=== PATIENT | female | born 1980 | race Caucasian/White ===

== ENCOUNTER → 2016-09-13 | Outpatient (CLI) | payer SELFPAY ==
[~2016-09-13] MED LIST: AMLO2.5T2 PO; ARIP2TAB3 PO; ASPI-999 PO; CATHETER FLUSH 10 ML SYR IV PRN; CETI10CA PO; CYCL5TAB PO; DICL25TA PO; GEMF600T3 PO; HYOS0.1283 SL; LISI-552 PO; LISI2.5T PO; METF500T4 PO; METO-351 PO; MONT4GRA PO; OMEG300C3 PO; OMEP20CA12 PO; OMEP40CA36 PO; SUCR1ORA5 PO; VENL75CA PO
--- OUTSIDE RECORDS SUMMARY | 2016-09-13 11:37 | XMS REPORT | Continuity of Care Document ---
Author Author [facility] Organization [facility] Address Unknown Phone Unavailable Care Team Providers Care Airline Captain Name Role Phone PCP Unavailable Source Comments Some departments are not documenting in the electronic medical record. If you do not see the information that you expected, contact Release of Information in the Health Information Management department at [phone] for further assistance in locating additional records.[facility] Active Allergies and Adverse Reactions Allergen Noted Date Severity Reactions Comments Codeine 01/22/2012 ANAPHYLAXIS Sulfa Dyne 01/22/2012 RASH Current Medications Prescription Sig. Disp. Refills Start End Date Status Date lisinopril (PRINIVIL; Take 10 mg by mouth Active ZESTRIL) 10 mg tablet daily. omeprazole DR(+) Take 20 mg by mouth Active (PRILOSEC) 20 mg capsule daily. meloxicam(+) (MOBIC) 7.5 Take 7.5 mg by mouth Active mg tablet daily. CYCLOBENZAPRINE HCL Take by mouth. Active (FLEXERIL PO) SUMAtriptan (IMITREX) 25 Take 25 mg by mouth every Active mg tablet 2 hours as needed. citalopram (CELEXA) 40 mg Take 40 mg by mouth Active tablet daily. HYDROcodone/acetaminophen Take 1-2 Tabs by mouth Active (VICODIN) 5/500 mg tablet every 4 hours as needed. loratadine (CLARITIN) 10 Take 10 mg by mouth Active mg tablet daily. Active Problems Problem Noted Date Hypertrophy of breast 01/22/2012 Social History Tobacco Use Types Packs/Day Years Used Date Never Smoker Smokeless Tobacco: Never Used Tobacco Cessation: Counseling Given: Yes Comments: Alcohol Use Drinks/Week oz/Week Comments Yes rarely Last Filed Vital Signs Vital Sign Reading Time Taken Blood Pressure 132/90 01/22/2012 1:57 PM CDT Pulse 101 01/22/2012 1:57 PM CDT Temperature 37.2 C (99 F) 01/22/2012 1:57 PM CDT Respiratory Rate 16 01/22/2012 1:57 PM CDT Height 1.676 m (5' 6") 01/22/2012 1:57 PM CDT Weight 90.719 kg (200 lb) 01/22/2012 1:57 PM CDT Body Mass Index 32.3 01/22/2012 1:57 PM CDT Oxygen Saturation - - Plan of Care Health Maintenance Due Date Last Done Comments Physical (Comprehensive) 1986 Exam Pertussis Vaccine 1990 Tetanus Vaccine 1996 Cervical Cancer Screening 2000 Influenza Vaccine 05/09/2016 Results from Last 3 Months Not on file
--- NOTE | 2016-09-13 18:44 | Diagnostic Imaging Report ---
INDICATION: Epigastric pain. TECHNIQUE: Patient received 5.2 mCi Tc 99m Choletec. Following confirmation of activity within the gallbladder, the biliary ducts, and the proximal bowel, the patient ingested 8 ounces of fatty meal comprised of Ensure Plus and gallbladder ejection fraction subsequently quantified. FINDINGS: There is prompt homogeneous distribution of the radiopharmacy throughout the liver parenchyma. Activity is quickly identified within the gallbladder as well as central intrahepatic biliary ducts within the 15-minute interval. Activity is confirmed within proximal bowel at the 30-minute interval. With fatty meal stimulation, gallbladder ejection fraction was 57%, normal. IMPRESSION: Normal nuclear medicine hepatobiliary scan. Normal gallbladder ejection fraction. Patency of the cystic duct and extrahepatic ducts confirmed. Dictated by: Dictated on workstation # [id number]
== END ==
LOC: CARD 11:34
PROVIDERS: ATTEND Emergency Medicine
DX: R10.13 Epigastric pain (principal)
CPT/HCPCS: 78227

== ENCOUNTER → 2018-07-14 | Outpatient (CLI) | payer OTHER ==
[~2018-07-14] MED LIST changes: -CATHETER FLUSH 10 ML SYR IV PRN; -GEMF600T3 PO; +GEMF600T4 PO; +METF-397 PO; -METF500T4 PO
--- NOTE | 2018-07-14 11:26 | Diagnostic Imaging Report ---
PROCEDURE: MRI left joint lower extremity without contrast. TECHNIQUE: Multiplanar, multisequence non contrast-enhanced MRI of the left lower extremity was accomplished. Indication: Left ankle pain, greatest anteriorly. Comparisons: None available. Findings: TENDONS: Achilles is normal. The peroneal tendons are intact and without tenosynovitis. The posterior tibialis, flexor digitorum longus and flexor hallucis longus are normal. The anterior tibialis and extensor hallucis longus tendons are normal. There is interstitial type edema within the extensor hallucis longus and peroneus tertius muscle bellies just above the tibiotalar joint. The visualized portions of the tendons are otherwise normal. LIGAMENTS: Anterior and posterior distal tibiofibular ligaments are intact. The anterior talofibular ligament is intact with mild thickening likely due to old injury which has healed via scar formation. Calcaneofibular ligament is also intact with mild thickening. Posterior tibiofibular ligament is normal. Medial deltoid ligamentous complex is intact. BONES AND CARTILAGE: No osteochondral lesion of the talar dome. No fracture or stress fracture. The articular cartilage of the tibiotalar and posterior subtalar joints are normal. SOFT TISSUES: No evidence of plantar fasciitis. No abnormal soft tissue scar/fibrosis within the tarsal canal/sinus tarsi or tarsal tunnel. No ankle joint effusion. A small T2 hyperintense cystic ganglion arises from the lateral aspect of the talonavicular joint and extends superiorly measuring approximately 11 x 4 mm. This is located just deep to the extensor digitorum longus myotendinous junction. IMPRESSION: 1. Interstitial type edema within the peroneus tertius and extensor digitorum longus muscle bellies suggests low-grade muscle sprain. No associated tendon tear. 2. Small ganglion arising from the lateral and dorsal aspect of the talonavicular joint extends superficially and measures 11 x 4 mm. The superficial aspect of the ganglion is located along the deep surface of the extensor digitorum longus. 3. No acute ligamentous abnormality. Probable old injuries of the ATFL and CFL which have healed via scar formation. Dictated by: Dictated on workstation # [id number]
== END ==
LOC: RAD 08:38
PROVIDERS: ATTEND Nurse Practitioner Community Health
DX: M25.472 Effusion, left ankle (principal); M67.472 Ganglion, left ankle and foot
CPT/HCPCS: 73721

== ENCOUNTER → 2019-06-22 | Outpatient (CLI) | payer OTHER ==
[~2019-06-22] MED LIST changes: -GEMF600T4 PO; +GEMF600T8 PO; -OMEP20CA12 PO; +OMEP20CA13 PO
--- NOTE | 2019-06-22 15:34 | Diagnostic Imaging Report ---
EXAMINATION: Magnetic resonance imaging of the left ankle without contrast. DATE: June 22, 2019. COMPARISON: MRI left ankle of July 14, 2018. HISTORY: 38-year-old female, history of prior left ankle injury. Evaluation for ankle impingement syndrome. TECHNIQUE: Magnetic Resonance Imaging sequences were performed of the ankle without contrast. FINDINGS: TENDONS AND LIGAMENTS: The Achilles tendon is unremarkable. The posterior flexor tendons (tibialis posterior, flexor digitorum longus, flexor hallucis longus) are intact. The peroneal tendons (peroneus longus and peroneus brevis) are intact. The anterior extensor tendons (tibialis anterior, extensor hallucis longus, and extensor digitorum longus tendons) are intact. The anterior and posterior syndesmotic ligaments are intact. There is abnormal thickening and increased signal of the anterior talofibular ligament with a similar appearance of the calcaneofibular ligament. The posterior talofibular ligament is intact. There is ill-defined edema-like signal adjacent to the low lateral ankle ligament complex. There is also a well-corticated ossification in this distribution, compatible with sequela of remote prior injury. There is low-level degenerative related change in the lateral talus in this distribution, best illustrated on coronal PD fat saturation sequence image 14. There is no current tear identified of the anterior talofibular ligament, calcaneofibular ligament, or posterior talofibular ligament. The deep deltoid ligament is intact. There is a ganglion cyst along the transverse ligament measuring 4.7 x 6.8 x 7 mm in size. JOINTS: There is a small to moderate tibiotalar joint effusion. There is no pronounced tibiotalar joint space loss or osteophyte formation. There is mild posterior subtalar arthritis. There is no subtalar joint effusion. BONE: The talar dome is intact. There is no acute fracture. There is low-level degenerative related marrow change adjacent to the posterior subtalar joint. The additional bone marrow signal is unremarkable. BURSAE AND SOFT TISSUES: The bursae and soft tissues surrounding the ankle are unremarkable. IMPRESSION: 1. Sequela of prior anterior talofibular and calcaneofibular ligament injuries with abnormal thickening and increased signal of both ligaments. There is a well corticated ossification in the distribution of the low lateral ankle ligament complex, compatible with sequela of prior injury. There is ill-defined soft tissue edema in the region which may correlate with the provided history of impingement syndrome. Current tear of the low lateral ankle ligaments. 2. Intact deltoid ligament complex and syndesmotic ligaments. 3. Intact tendons. 4. No acute fracture. Intact talar dome. 5. Small to moderate tibiotalar joint effusion. Mild posterior subtalar arthritis. Dictated by: Dictated on workstation # [id number]
== END ==
LOC: RAD 13:36
PROVIDERS: ATTEND Orthopaedic Surgery
DX: S93.492A Sprain of other ligament of left ankle, initial encounter (principal); M25.872 Other specified joint disorders, left ankle and foot; M19.072 Primary osteoarthritis, left ankle and foot; M61.572 Other ossification of muscle, left ankle and foot
CPT/HCPCS: 73721

== ENCOUNTER 2019-11-22 07:00 | Emergency (ER) | payer MEDICAID, OTHER ==
[~2019-11-22] VITALS: Ht 167.7 cm; Wt 100.0 kg
[~2019-11-22 07:00] MED LIST changes: -OMEP20CA13 PO; +OMEP20CA18 PO; +OMEP40CA27 PO; -OMEP40CA36 PO
--- NOTE | 2019-11-22 07:14 | ED GI ---
General Stated Complaint: BLOOD IN STOOL Source of Information: Patient Exam Limitations: No Limitations History of Present Illness Date Seen by Provider: Nov 22, 2019 Time Seen by Provider: 07:04 Initial Comments Patient presents ER by private conveyance from home with chief complaint that since yesterday she's had some mild nausea with no vomiting. She's also having some blood from the rectum. She says she was trying to have a bowel movement and straining and was only able to pass a small amount of soft stool. She said since then she's had some blood pass from rectum. She has no history of EGD or colonoscopy. She does have a history of hemorrhoids with some bright red blood on wiping in the past. She's never had a fissure. She's not having significant pain in her rectum. She's had no fever or chills. She's had some general discomfort in her lower abdomen bilaterally. She's had no abdominal surgeries. No trauma. She takes an aspirin daily but does not take any blood thinners. She has not taken anything for pain or nausea. Allergies and Home Medications Allergies Coded Allergies: Sulfa (Sulfonamide Antibiotics) (Verified Allergy, Unknown, 05/12/15) codeine (Verified Allergy, Unknown, 05/12/15) Home Medications Amlodipine Besylate 2.5 Mg Tablet, 5 MG PO DAILY, (Reported) Hyoscyamine Sulfate 0.125 Mg Tab.subl, 1-2 TAB SL Q4H Prescribed by: FIORELLA GARCIA on 08/25/162337 Lisinopril 20 Mg Tablet, 1 TAB PO DAILY, (Reported) Metformin HCl 500 Mg Tablet, 1 TAB PO BID, (Reported) Metoprolol Succinate 25 Mg Tab.er.24h, 25 MG PO DAILY Prescribed by: LIAT BEACH on 05/12/152133 Montelukast Sodium 4 Mg Gran.pack, 4 MG PO HS, (Reported) Omeprazole 20 Mg Capsule.dr, 1 CAP PO DAILY, (Reported) Omeprazole 40 Mg Capsule., 40 MG PO DAILY Prescribed by: FIORELLA GARCIA on 08/25/162337 Sucralfate 1 Gm/10 Ml Oral.susp, 1 GM PO QID AC AND HS Prescribed by: FIORELLA GARCIA on 08/25/162337 Patient Home Medication List Home Medication List Reviewed: Yes Review of Systems Review of Systems Constitutional: No chills, No diaphoresis EENTM: No Blurred Vision, No Double Vision Respiratory: Denies Cough, Denies Shortness of Air Cardiovascular: Denies Chest Pain, Denies Edema Gastrointestinal: See HPI, Abdominal Pain, Constipated; Denies Diarrhea; Nausea ; Denies Vomiting Genitourinary: Denies Burning, Denies Discharge Musculoskeletal: No back pain, No joint pain Skin: No pruritus, No rash Psychiatric/Neurological: Denies Headache, Denies Numbness All Other Systems Reviewed Negative Unless Noted: Yes Past Bwpupyk-Jqmaif-Udfrah Hx Patient Social History Alcohol Use: Denies Use Recreational Drug Use: No Smoking Status: Never a Smoker Recent Foreign Travel: No Contact w/Someone Who Travel: No Recent Hopitalizations: No Immunizations Up To Date Tetanus Booster (TDap): Unknown Seasonal Allergies Seasonal Allergies: No Past Medical History Orthopedic, Tonsillectomy Asthma Currently Using CPAP: No Currently Using BIPAP: No High Cholesterol, Hypertension Headaches /Migraines Reproductive Disorders: Yes (PCOS) Female Reproductive Disorders: Polycystic Ovarian Dis Gastroesophageal Reflux Fibromyalgia Diabetes, Non-Insulin dep Anxiety, Depression Adverse Reaction/Blood Tranf: No Physical Exam Vital Signs Vital Signs - First Documented 11/22/19 07:04 Temp 37.0 Pulse 100 Resp 18 B/P (MAP) 142/99 (113) O2 Delivery Room Air Capillary Refill : Height/Weight/BMI Height: 5'6" Weight: 203lbs. oz. 92.577671hr; BMI Method:Stated General Appearance: WD/WN, no apparent distress HEENT: PERRL/EOMI, pharynx normal Neck: full range of motion, normal inspection Respiratory: no respiratory distress, no accessory muscle use Cardiovascular: normal peripheral pulses, regular rate, rhythm, tachycardia (110) Peripheral Pulses: 2+ Radial Pulses (R), 2+ Radial Pulses (L) Gastrointestinal: normal bowel sounds, non tender, soft, no organomegaly, other (negative for mesenteric signs, psoas sign, Rovsing sign, McBurney's point tenderness.) Rectal: normal exam, normal rectal tone, heme positive stool, other (rectal vault free of mass or stool. No significant hemorrhoid, fissure or lesion.) Extremities: normal inspection, normal capillary refill Neurologic/Psychiatric: alert, oriented x 3 Skin: normal color, warm/dry Progress/Results/Core Measures Results/Orders Lab Results Laboratory Tests Test 11/22/19 07:20 11/22/19 07:33 Range/Units Urine Color YELLOW Urine Clarity CLEAR Urine pH 7.0 5-9 Urine Specific [place] 1.020 1.016-1.022 Urine Protein TRACE H NEGATIVE Urine Glucose (UA) NEGATIVE NEGATIVE Urine Ketones NEGATIVE NEGATIVE Urine Nitrite NEGATIVE NEGATIVE Urine Bilirubin NEGATIVE NEGATIVE Urine Urobilinogen 1.0 < = 1.0 MG/DL Urine Leukocyte Esterase 1+ H NEGATIVE Urine RBC (Auto) NEGATIVE NEGATIVE Urine RBC RARE /HPF Urine WBC 10-25 H /HPF Urine Squamous Epithelial Cells 2-5 /HPF Urine Crystals NONE /LPF Urine Bacteria FEW H /HPF Urine Casts PRESENT /LPF Urine Hyaline Casts 0-2 H /LPF Urine Mucus SMALL H /LPF Urine Culture Indicated YES White Blood Count 17.1 H 4.3-11.0 10^3/uL Red Blood Count 5.14 4.35-5.85 10^6/uL Hemoglobin 14.1 11.5-16.0 G/DL Hematocrit 44 35-52 % Mean Corpuscular Volume 86 80-99 FL Mean Corpuscular Hemoglobin 27 25-34 PG Mean Corpuscular Hemoglobin Concent 32 32-36 G/DL Red Cell Distribution Width 14.8 H 10.0-14.5 % Platelet Count 527 H 130-400 10^3/uL Mean Platelet Volume 9.3 7.4-10.4 FL Neutrophils (%) (Auto) 80 H 42-75 % Lymphocytes (%) (Auto) 13 12-44 % Monocytes (%) (Auto) 6 0-12 % Eosinophils (%) (Auto) 0 0-10 % Basophils (%) (Auto) 0 0-10 % Neutrophils # (Auto) 13.7 H 1.8-7.8 X 10^3 Lymphocytes # (Auto) 2.2 1.0-4.0 X 10^3 Monocytes # (Auto) 1.1 H 0.0-1.0 X 10^3 Eosinophils # (Auto) 0.0 0.0-0.3 10^3/uL Basophils # (Auto) 0.1 0.0-0.1 10^3/uL Sodium Level 134 L 135-145 MMOL/L Potassium Level 4.4 3.6-5.0 MMOL/L Chloride Level 105 98-107 MMOL/L Carbon Dioxide Level 18 L 21-32 MMOL/L Anion Gap 11 5-14 MMOL/L Blood Urea Nitrogen 12 7-18 MG/DL Creatinine 0.98 0.60-1.30 MG/DL Estimat Glomerular Filtration Rate > 60 BUN/Creatinine Ratio 12 Glucose Level 182 H 70-105 MG/DL Calcium Level 10.1 8.5-10.1 MG/DL My Orders Orders - SHERRELL NASH Occult Blood Stool (11/22/19 07:12) Cbc With Automated Diff (11/22/19 07:12) Basic Metabolic Panel (11/22/19 07:12) Ua Culture If Indicated (11/22/19 07:12) Urine Bedside (11/22/19 07:12) Ondansetron Oral Dissolve Tab (Zofran (11/22/19 07:15) Pantoprazole Tablet (Protonix Tablet) (11/22/19 07:15) Manual Differential (11/22/19 07:33) Urine Culture (11/22/19 07:20) Medications Given in ED Current Medications Medications Dose Ordered Sig/Yumi Route Start Time Stop Time Status Last Admin Dose Admin Ondansetron HCl 4 mg ONCE ONCE PO 11/22/19 07:15 11/22/19 07:16 DC 11/22/19 07:25 4 MG Pantoprazole Sodium 20 mg ONCE ONCE PO 11/22/19 07:15 11/22/19 07:16 DC 11/22/19 07:24 20 MG Vital Signs/I&O 11/22/19 07:04 Temp 37.0 Pulse 100 Resp 18 B/P (MAP) 142/99 (113) O2 Delivery Room Air Progress Progress Note : Time: 07:18 Progress Note Pelvic constipation possibly hemorrhoids. Plan to do a rectal exam. We'll give her some Protonix and Zofran for her symptoms. If her hemogram does not demonstrate significant anemia then we can get her set up for endoscopy outpa tient. Fecal occult blood test positive. Departure Impression Primary Impression: Bright red blood per rectum Additional Impression: UTI (urinary tract infection) Qualified Codes: N30.00 - Acute cystitis without hematuria Disposition: 01 HOME, SELF-CARE Condition: Stable Departure-Patient Inst. Decision time for Depature: 08:15 Referrals: CLAUDE OCASIO DO (PCP) Primary Care Physician ANN MARIE BENSON (Family) Primary Care Physician BLANCA GARCES MD Patient Instructions: Urinary Tract Infection, Adult (DC), Bloody Stools, Adult (DC) Add. Discharge Instructions: I suspect that you may have the start of a bladder infection and so we would cover you with some Macrobid for the next 7 days. Drink plenty of fluids. For the blood in your stool I would cover you you with an acid in process inspector such as omeprazole or pantoprazole 20m mg twice a day. These are available [id number] or we will send you with a prescription. Endoscopy is the next step in diagnosing what's causing the bleeding. I would recommend you go see Dr. Garces, general surgery by giving his clinic a phone call to schedule an appointment in the next 1-2 weeks. Ondansetron one tablet every 6 hours as needed for nausea or vomiting. Discontinue the use of aspirin, ibuprofen, naproxen/Aleve or other NSAIDs until cleared by Dr. Garces or your primary care doctor. Scripts Ondansetron (Ondansetron Odt) 4 Mg Tab.rapdis 4 MG PO Q6H PRN for NAUSEA/VOMITING, #8 TAB 0 Refills Prov: SHERRELL NASH 11/22/19 Nitrofurantoin Monohyd/M-Cryst (Macrobid 100 mg Capsule) 100 Mg Capsule 1 TAB PO BID for 7 Days, #14 CAP 0 Refills Prov: SHERRELL NASH 11/22/19 Omeprazole (Omeprazole) 20 Mg Capsule.dr 20 MG PO BID for 30 Days, #60 CAP 0 Refills Prov: SHERRELL NASH 11/22/19 Work/School Note: Work Release Form Date Seen in the Emergency Department: Nov 22, 2019 Return to Work: Nov 23, 2019 Restrictions: No Restrictions Copy Copies To 1: BLANCA GARCES MD, TITUS J Nov 22, 2019 07:14
[2019-11-22] MEDS ORDERED: ONDANSETRON 4 MG (ZOFRAN) ORAL DISSOLVE TAB PO ONE (07:15)
[2019-11-22] MEDS ORDERED: PANTOPRAZOLE 20 MG TABLET (PROTONIX) PO ONE (07:15)
[2019-11-22 07:35] LABS: BILIRUBIN,URINE NEGATIVE (NEGATIVE); CLARITY,URINE CLEAR; COLOR,URINE YELLOW; GLUCOSE, URINE (UA) NEGATIVE (NEGATIVE); KETONES,URINE NEGATIVE (NEGATIVE); LEUKOCYTE ESTERASE ,URINE 1+ (NEGATIVE); NITRITE,URINE NEGATIVE (NEGATIVE); PROTEIN,URINE TRACE (NEGATIVE)
[2019-11-22 07:41] LABS: BASOPHILS # (AUTO) 0.1 10^3/uL (0.0-0.1); BASOPHILS % (AUTO) 0 % (0-10); EOSINOPHILS % (AUTO) 0 % (0-10); HEMATOCRIT 44 % (35-52); HEMOGLOBIN 14.1 G/DL (11.5-16.0); LYMPHOCYTES # (AUTO) 2.2 X 10^3 (1.0-4.0); LYMPHOCYTES % (AUTO) 13 % (12-44); MEAN CORPUSCULAR HEMOGLOBIN 27 PG (25-34); MEAN CORPUSCULAR HGB CONC 32 G/DL (32-36); MEAN CORPUSCULAR VOLUME 86 FL (80-99); MEAN PLATELET VOLUME 9.3 FL (7.4-10.4); MONOCYTES # (AUTO) 1.1 X 10^3 (0.0-1.0); MONOCYTES % (AUTO) 6 % (0-12); NEUTROPHILS # (AUTO) 13.7 X 10^3 (1.8-7.8); NEUTROPHILS % (AUTO) 80 % (42-75); PLATELET COUNT 527 10^3/uL (130-400); RED CELL DISTRIBUTION WIDTH 14.8 % (10.0-14.5); WHITE BLOOD COUNT 17.1 10^3/uL (4.3-11.0)
[2019-11-22 07:54] LABS: BACTERIA,URINE FEW /HPF; RBC,URINE RARE /HPF
[2019-11-22 07:55] LABS: HYALINE CASTS, URINE 0-2 /LPF
[2019-11-22 08:04] LABS: BUN/CREATININE RATIO 12; CALCIUM 10.1 MG/DL (8.5-10.1); CARBON DIOXIDE 18 MMOL/L (21-32); CHLORIDE 105 MMOL/L (98-107); CREATININE SERUM 0.98 MG/DL (0.60-1.30); GFR ESTIMATED > 60; GLUCOSE 182 MG/DL (70-105); POTASSIUM 4.4 MMOL/L (3.6-5.0); SODIUM 134 MMOL/L (135-145)
[2019-11-22] MEDS ORDERED: OMEP20CA18 PO (08:31)
[2019-11-22] MEDS ORDERED: NITR-65 PO (08:31)
[2019-11-22] MEDS ORDERED: ONDA4TAB11 PO (08:31)
[2019-11-22 08:42] VITALS: BP 136/89
[2019-11-22 08:45] LABS: LYMPHOCYTES % (MANUAL) 9 %; MONOCYTES % (MANUAL) 7 %; NEUTROPHILS % (MANUAL) 84 %; RBC MORPH NORMAL
== END 2019-11-22 08:42 | disposition home or self-care (01) ==
LOC: EDUNIT# 07:00 → ER 07:02
DX: K62.5 Hemorrhage of anus and rectum (principal); N39.0 Urinary tract infection, site not specified; I10 Essential (primary) hypertension; E11.9 Type 2 diabetes mellitus without complications; K21.9 Gastro-esophageal reflux disease without esophagitis; Z88.2 Allergy status to sulfonamides; Z88.5 Allergy status to narcotic agent; Z79.84 Long term (current) use of oral hypoglycemic drugs
CPT/HCPCS: 36415; 80048; 81000; 82274; 84703; 85007; 85027; 87077; 87088; 87186

== ENCOUNTER → 2020-03-24 | Outpatient (CLI) | payer MEDICAID, OTHER ==
[~2020-03-24] MED LIST changes: +NITR-65 PO; +ONDA4TAB11 PO
--- NOTE | 2020-03-24 14:20 | Diagnostic Imaging Report ---
PROCEDURE: CT left lower extremity without contrast. TECHNIQUE: Multiple contiguous axial images were obtained through the left lower extremity without the use of intravenous contrast. Sagittal and coronal reformations were then performed. Auto Exposure Controls were utilized during the CT exam to meet ALARA standards for radiation dose reduction. INDICATION: Ankle fracture four years ago with four surgeries. Persistent ankle pain. COMPARISON: MRI from 06/22/2019. FINDINGS: There is an arthrodesis of the posterior subtalar joint with two cannulated partially-threaded screws placed through the calcaneus and subtalar joint. Approximately one-third of the posterior subtalar joint appears to be bridged. There is no loosening of the hardware. No acute fracture is seen in the left ankle. The ankle mortise appears symmetric and the talar dome is intact. There is a type I accessory navicular. A small os peroneum is noted. The tendons and ligaments are better evaluated by MRI. No focal muscular atrophy is seen. No fluid collections are seen. IMPRESSION: 1. Arthrodesis of the posterior subtalar joint with no evidence of hardware loosening seen. No acute fracture is seen in the left ankle. Dictated by: Dictated on workstation # [id number]
== END ==
LOC: RAD 11:53
PROVIDERS: ATTEND Orthopaedic Surgery
DX: Z98.1 Arthrodesis status (principal); Z98.890 Other specified postprocedural states
CPT/HCPCS: 73700

== ENCOUNTER 2020-12-29 08:53 | Outpatient (RCR) | payer OTHER ==
[~2020-12-29 08:53] MED LIST changes: -GEMF600T8 PO; +GEMF600T88 PO; -LISI-552 PO; +LISI20TA26 PO
== END 2021-01-17 | disposition home or self-care (01) ==
PROVIDERS: ATTEND Physician Assistant
DX: M96.0 Pseudarthrosis after fusion or arthrodesis (principal); I10 Essential (primary) hypertension

== ENCOUNTER 2021-02-09 22:13 | Emergency (ER) | payer SELFPAY ==
[~2021-02-09] VITALS: Ht 167.7 cm; Wt 102.9 kg
[2021-02-09 22:25] LABS: CLARITY,URINE CLEAR; COLOR,URINE YELLOW; GLUCOSE, URINE (UA) NEGATIVE (NEGATIVE); KETONES,URINE NEGATIVE (NEGATIVE); LEUKOCYTE ESTERASE ,URINE NEGATIVE (NEGATIVE); NITRITE,URINE NEGATIVE (NEGATIVE); PH,URINE 5.5 (5-9); PROTEIN,URINE TRACE (NEGATIVE)
[2021-02-09 22:30] LABS: BILIRUBIN,URINE NEGATIVE (NEGATIVE)
--- NOTE | 2021-02-09 22:39 | ED GU-Female ---
General Chief Complaint: - Urinary Stated Complaint: PAINFUL URINATION/URGENCY Source: patient Exam Limitations: no limitations History of Present Illness Date Seen by Provider: Feb 09, 2021 Time Seen by Provider: 22:17 Initial Comments Patient presents ER by private conveyance from home with chief complaint of dysuria for the past 3 hours. Has a history of about 3 or 4 urinary tract infections a year. She used to have lots more and went to urology and had scopes as well as urethral sphincter stretching a few years ago. She is not having any discharge diarrhea constipation nausea vomiting fever chills or significant abdominal pain. She states she has not had any abdominal surgeries. She does have a history of fibromyalgia and rates her dysuria when she urinates about an 8 out of 10. She has used Tylenol and ibuprofen earlier in the day for headache but not anything for her dysuria such as AZO. She states she also has a history of urethritis which often turns into UTIs. She has diabetes and has had a difficult time recently getting her sugars under good control. Primary care by Dr. Noguera. Allergies and Home Medications Allergies Coded Allergies: Sulfa (Sulfonamide Antibiotics) (Verified Allergy, Unknown, 02/09/21) codeine (Verified Allergy, Unknown, 02/09/21) diphenhydramine (Verified Allergy, Unknown, 02/09/21) Home Medications Amlodipine Besylate 2.5 Mg Tablet, 5 MG PO DAILY, (Reported) Hyoscyamine Sulfate 0.125 Mg Tab.subl, 1-2 TAB SL Q4H Prescribed by: FIORELLA GARCIA on 08/25/162337 Lisinopril 20 Mg Tablet, 1 TAB PO DAILY, (Reported) Metformin HCl 500 Mg Tablet, 1 TAB PO BID, (Reported) Metoprolol Succinate 25 Mg Tab.er.24h, 25 MG PO DAILY Prescribed by: LIAT BEACH on 05/12/152133 Montelukast Sodium 4 Mg Gran.pack, 4 MG PO HS, (Reported) Nitrofurantoin Monohyd/M-Cryst 100 Mg Capsule, 1 TAB PO BID Prescribed by: SHERRELL NASH on 11/22/19 0831 Omeprazole 20 Mg Capsule.dr, 1 CAP PO DAILY, (Reported) Omeprazole 40 Mg Capsule., 40 MG PO DAILY Prescribed by: FIORELLA GARCIA on 08/25/162337 Omeprazole 20 Mg Capsule.dr, 20 MG PO BID Prescribed by: SHERRELL NASH on 11/22/19 0831 Ondansetron 4 Mg Tab.rapdis, 4 MG PO Q6H PRN for NAUSEA/VOMITING Prescribed by: SHERRELL NASH on 11/22/19 0831 Sucralfate 1 Gm/10 Ml Oral.susp, 1 GM PO QID AC AND HS Prescribed by: FIORELLA GARCIA on 08/25/16 0313 Patient Home Medication List Home Medication List Reviewed: Yes Review of Systems Review of Systems Constitutional: No chills, No diaphoresis EENTM: No ear discharge, No ear pain Respiratory: No cough, No phlegm Cardiovascular: No chest pain, No edema Gastrointestinal: No abdominal pain, No nausea Genitourinary: denies discharge; dysuria; denies frequency Past Vkjitno-Snhzpq-Uxwhfc Hx Patient Social History Alcohol Use: Denies Use Recent Hopitalizations: No Immunizations Up To Date Tetanus Booster (TDap): Unknown Seasonal Allergies Seasonal Allergies: No Past Medical History Surgeries: Yes (DENTAL--WISDOM TEETH REMOVED; LEFT ANKLE) Orthopedic, Tonsillectomy Respiratory: Yes Asthma Currently Using CPAP: No Currently Using BIPAP: No Cardiac: Yes High Cholesterol, Hypertension Neurological: Yes Headaches /Migraines Reproductive Disorders: Yes (PCOS) Female Reproductive Disorders: Polycystic Ovarian Dis Genitourinary: Yes (PATIENT OF DR SUAREZ) UTI-Chronic Gastrointestinal: Yes Gastroesophageal Reflux Musculoskeletal: Yes Fibromyalgia Endocrine: Yes (INSULIN RESISTANCE) Diabetes, Non-Insulin dep HEENT: No Cancer: No Psychosocial: Yes Anxiety, Depression Integumentary: No Blood Disorders: No Adverse Reaction/Blood Tranf: No Physical Exam Vital Signs Vital Signs - First Documented 02/09/21 22:19 Temp 35.9 Pulse 110 Resp 20 B/P (MAP) 129/82 (98) Pulse Ox 96 Capillary Refill : Height, Weight, BMI Height: 5'6" Weight: 203lbs. oz. 92.046924xz; 35.00 BMI Method:Stated General Appearance: WD/WN, no apparent distress HEENT: PERRL/EOMI, pharynx normal Neck: full range of motion, normal inspection Cardiovascular: normal peripheral pulses, regular rate, rhythm Respiratory: no respiratory distress, no accessory muscle use Neurologic/Psychiatric: alert, normal mood/affect Progress/Results/Core Measures Suspected Sepsis SIRS Temperature: Pulse: Respiratory Rate: Blood Pressure / Mean: Results/Orders Lab Results Laboratory Tests Test 02/09/21 22:19 Range/Units Urine Color YELLOW Urine Clarity CLEAR Urine pH 5.5 5-9 Urine Specific Amma >=1.030 1.016-1.022 Urine Protein TRACE H NEGATIVE Urine Glucose (UA) NEGATIVE NEGATIVE Urine Ketones NEGATIVE NEGATIVE Urine Nitrite NEGATIVE NEGATIVE Urine Bilirubin NEGATIVE NEGATIVE Urine Urobilinogen 0.2 < = 1.0 MG/DL Urine Leukocyte Esterase NEGATIVE NEGATIVE Urine RBC (Auto) NEGATIVE NEGATIVE Urine RBC RARE /HPF Urine WBC 2-5 /HPF Urine Squamous Epithelial Cells 2-5 /HPF Urine Crystals /LPF Urine Bacteria FEW H /HPF Urine Casts PRESENT /LPF Urine Hyaline Casts 0-2 H /LPF Urine Mucus LARGE H /LPF Urine Culture Indicated NO My Orders Orders - SHERRELL NASH Ua Culture If Indicated (02/09/21 22:17) Vital Signs/I&O 02/09/21 22:19 Temp 35.9 Pulse 110 Resp 20 B/P (MAP) 129/82 (98) Pulse Ox 96 Capillary Refill : Progress Note : Time: 22:38 Progress Note Urinalysis with microscopy pending. Even if it is negative we may put her on a trial of Macrobid to see if that helps with the urethritis. She declined STI testing. Departure Impression Primary Impression: Urethritis Disposition: 01 HOME, SELF-CARE Condition: Stable Departure-Patient Inst. Decision time for Depature: 22:52 Referrals: [facility] (PCP) Primary Care Physician GRISELDA NOGUERA APRN (Family) Primary Care Physician Patient Instructions: Urethritis (DC) Add. Discharge Instructions: Drink plenty of fluids. AZO/Pyridium twice a day as necessary for urinary pain. Macrobid 1 tablet twice a day for the next week. Follow-up with your primary care doctor if her symptoms are not improving. All discharge instructions reviewed with patient and/or family. Voiced understanding. Scripts Nitrofurantoin Macrocrystal (Nitrofurantoin) 100 Mg Capsule 100 MG PO BID for 7 Days, #14 CAP 0 Refills Prov: SHERRELL NASH 02/09/21 SHERRELL NASH Feb 09, 2021 22:39
[2021-02-09 22:41] LABS: RBC,URINE RARE /HPF
[2021-02-09 22:43] LABS: BACTERIA,URINE FEW /HPF
[2021-02-09 22:44] LABS: HYALINE CASTS, URINE 0-2 /LPF
[2021-02-09] MEDS ORDERED: NITR100C PO (22:57)
[2021-02-09] MEDS ORDERED: NITROFURANTOIN 100 MG (MACROBID) CAPSULE PO ONE (23:00)
[2021-02-09] MEDS ORDERED: PHENAZOPYRIDINE 100 MG (PYRIDIUM) TABLET PO ONE (23:00)
[2021-02-09 23:09] VITALS: BP 130/84
== END 2021-02-09 23:08 | disposition home or self-care (01) ==
LOC: EDUNIT# 22:13 → ER 22:15
DX: N34.2 Other urethritis (principal); I10 Essential (primary) hypertension; E11.9 Type 2 diabetes mellitus without complications; J45.909 Unspecified asthma, uncomplicated; G43.909 Migraine, unspecified, not intractable, without status migrainosus; K21.9 Gastro-esophageal reflux disease without esophagitis; Z88.2 Allergy status to sulfonamides; Z79.84 Long term (current) use of oral hypoglycemic drugs; Z79.899 Other long term (current) drug therapy
CPT/HCPCS: 81000; 99283

== ENCOUNTER 2021-02-28 12:55 | Outpatient (RCR) | payer OTHER ==
[~2021-02-28 12:55] MED LIST changes: +NITR100C PO; -OMEP40CA27 PO; +OMEP40CA6 PO
== END 2021-03-09 13:45 | disposition home or self-care (01) ==
PROVIDERS: ATTEND Physician Assistant
DX: M96.0 Pseudarthrosis after fusion or arthrodesis (principal); I10 Essential (primary) hypertension

== ENCOUNTER → 2021-04-26 | Outpatient (CLI) | payer SELFPAY ==
--- NOTE | 2021-04-26 18:38 | Diagnostic Imaging Report ---
PROCEDURE: MRI left joint lower extremity without contrast. TECHNIQUE: Multiplanar, multisequence non contrast-enhanced MRI of the left ankle was accomplished. INDICATION: Achilles tendinitis. COMPARISONS: MRI of the ankle from 06/22/2019. FINDINGS: TENDONS: Achilles is intact without surrounding inflammatory change or tendinopathy. Peroneus longus and brevis tendons are normal. Posterior tibialis, flexor digitorum longus and flexor hallucis longus are normal. Anterior tibialis, extensor hallucis longus and extensor digitorum longus are normal. LIGAMENTS: The anterior and posterior distal tibiofibular ligaments are intact. Anterior talofibular ligament and calcaneofibular ligament are poorly defined likely from old injuries. Posterior talofibular ligament is intact. Medial deltoid ligamentous complex is normal. The spring ligament remains intact. BONES AND CARTILAGE: There are surgical changes from posterior subtalar joint arthrodesis with 2 cannulated lag screws transversing the joint. By MRI, it is difficult to ascertain if there is solid fusion. There is no bone marrow edema across the posterior subtalar joint. No osteochondral lesion of the talar dome. SOFT TISSUES: No evidence of plantar fasciitis. No abnormal soft tissue scar/fibrosis within the tarsal canal/sinus tarsi or tarsal tunnel. No ankle joint effusion. IMPRESSION: 1. Achilles tendon is intact without surrounding inflammatory change. 2. Chronic injuries of the anterior talofibular and calcaneofibular ligament. 3. Status post subtalar arthrodesis for which MRI is suboptimal to assess if fusion is solid. There is no edema across the arthrodesis site. Dictated by: Dictated on workstation # [id number]
== END ==
LOC: RAD 15:30
PROVIDERS: ATTEND Orthopaedic Surgery
DX: S93.432A Sprain of tibiofibular ligament of left ankle, initial encounter (principal); Z98.890 Other specified postprocedural states; Z98.1 Arthrodesis status
CPT/HCPCS: 73721

== ENCOUNTER 2021-12-20 07:27 | Outpatient (CLI) | payer SELFPAY ==
[~2021-12-20] VITALS: Ht 167.6 cm; Wt 100.6 kg
[~2021-12-20 07:27] MED LIST changes: -DICL25TA PO; +DICL25TA9 PO; -LISI2.5T PO; +LISI2.5T13 PO
[2021-12-20] MEDS ORDERED: OMEG10005 PO (08:49)
[2021-12-20] MEDS ORDERED: METF-399 PO (08:49)
[2021-12-20] MEDS ORDERED: VENL150C PO (08:49)
[2021-12-20] MEDS ORDERED: CYCL10TA25 PO (08:49)
[2021-12-20] MEDS ORDERED: MONT-40 PO (08:49)
[2021-12-20] MEDS ORDERED: AMLO-251 PO (08:49)
[2021-12-20] MEDS ORDERED: OMEP40CA6 PO (08:49)
[2021-12-20] MEDS ORDERED: MAGN250T31 PO (08:58)
[2021-12-20] MEDS ORDERED: UBID100C44 PO (08:58)
[2021-12-20] MEDS ORDERED: BUDE10.2 IH (08:58)
[2021-12-20] MEDS ORDERED: FLUT9.9S NS (08:58)
[2021-12-20] MEDS ORDERED: VENL75CA93 PO (08:58)
[2021-12-20] MEDS ORDERED: ASCO500C17 PO (08:58)
[2021-12-20] MEDS ORDERED: FAMO-119 PO (08:58)
[2021-12-20] MEDS ORDERED: METO-351 PO (08:58)
[2021-12-20] MEDS ORDERED: FERR325T18 PO (08:58)
[2021-12-20] MEDS ORDERED: AMIT50TA3 PO (08:58)
[2021-12-20] MEDS ORDERED: BIOT10005 PO (08:58)
[2021-12-20] MEDS ORDERED: CHOL10007 PO (08:58)
[2021-12-20] MEDS ORDERED: RT-ALBUINH IH (08:58)
[2021-12-20] MEDS ORDERED: ZINC50TA58 PO (08:58)
[2021-12-20] MEDS ORDERED: PRAV10TA PO (08:58)
[2021-12-20] MEDS ORDERED: SITA100T12 PO (08:58)
== END 2021-12-20 08:59 | disposition home or self-care (01) ==
LOC: PREOP 07:27
PROVIDERS: ATTEND Surgery
DX: Z01.818 Encounter for other preprocedural examination (principal)

== ENCOUNTER 2021-12-31 10:30 | Day surgery (SDC) | payer OTHER ==
[~2021-12-31] VITALS: Ht 167 cm; Wt 100.6 kg
[~2021-12-31 10:30] MED LIST changes: +AMIT50TA3 PO; +AMLO-251 PO; +ASCO500C17 PO; +BIOT10005 PO; +BUDE10.2 IH; +CHOL10007 PO; +CYCL10TA25 PO; +FAMO-119 PO; +FERR325T18 PO; +FLUT9.9S NS; +MAGN250T31 PO; +METF-399 PO; +MONT-40 PO; +OMEG10005 PO; +PRAV10TA PO; +RT-ALBUINH IH; +SITA100T12 PO; +UBID100C44 PO; +VENL150C PO; +VENL75CA93 PO; +ZINC50TA58 PO
[2021-12-31] MEDS ORDERED: LACTATED RINGERS 1,000 ML IV STA (10:34)
[2021-12-31] MEDS ORDERED: HURRICAINE EXT TUBE (BENZOCAINE) XX PRN (10:45)
[2021-12-31 10:50] VITALS: BP 131/84
--- NOTE | 2021-12-31 11:06 | Progress Note-Pre Operative ---
Pre-Operative Progress Note H&P Reviewed The H&P was reviewed, patient examined and no changes noted. Time Seen by Provider: 11:03 Date H&P Reviewed: Dec 31, 2021 Time H&P Reviewed: 11:03 Pre-Operative Diagnosis: Chronic Gastritis REINALDO HANKS DO Dec 31, 2021 11:06
[2021-12-31] MEDS ORDERED: proPOfol 200 MG/20 ML (DIPRIVAN) VIAL IV ONE (11:10)
[2021-12-31] MEDS ORDERED: MIDAZOLAM 2 MG/2 ML (VERSED) VIAL ONE (11:10)
[2021-12-31 11:25] VITALS: BP 125/72
[2021-12-31 11:30] VITALS: BP 116/67
--- NOTE | 2021-12-31 11:33 | Progress Note-Post Operative ---
Post-Operative Progess Note Surgeon (s)/Data Services Developer (s) Surgeon REINALDO HANKS DO Data Services Developer: none Pre-Operative Diagnosis Chronic Gastritis Post-Operative Diagnosis Chronic Gastritis Delayed emptying hiatal hernia gastric polyps Procedure & Operative Findings Date of Procedure 12/31/21 Procedure Performed/Findings EGD with bx EGD with hot bx to remove polyp PROCEDURE NOTE: After informed consent was obtained, the patient was brought to the endoscopy suite, placed in bed in left lateral decubitus position. She was administered IV sedation by the AIRPLANE TECHNICIAN who then monitored vitals the entire time, heart rate, blood pressure and pulse ox and the scope was inserted down the mouth through the esophagus into the stomach. On the way down, noted some mild esophagitis, pushed into the stomach and immediately encountered a large amount of retained food. Pushed past the antrum into the duodenum. Duodenum looked good, but also had some food particles. Pulled back and did a biopsy of the antrum, then retroflexed the scope, saw a very small hiatal hernia and took a picture of this. I also noted some gastric polyps, elected to remove one with hot biopsy; took it in two bites to completely remove it. Finally pulled the scope into the GE junction, took a picture of the esophagitis and then did a biopsy of the GE junction. Pushed the scope back into the stomach, suctioned all the air out of the stomach. At this point pulled the scope up the esophagus and out the mouth. The patient tolerated the procedure, and she recovered in endoscopy suite. Anesthesia Type IV sedation by AIRPLANE TECHNICIAN Estimated Blood Loss Estimated blood loss (mL): scant Specimens/Packing Specimens Removed antral bx GE jxn bx Gastric polyp REINALDO HANKS DO Dec 31, 2021 11:33
--- NOTE | 2021-12-31 11:36 | Endoscopy Discharge Instruct ---
Endo Procedure/Findings Findings 1.: Gastritis 2.: Hiatal Hernia 3.: Polyp (Gastric) Discharge Instructions - Activity: You might feel a little sleepy until tomorrow. This is due to the medicine you received to relax you. Until tomorrow, you should: NOT drive a car, operate machinery or power tools. NOT drink any alcoholic beverages. NOT make any important decisions or sign importortant papers. Do not return to work until tomorrow, unless otherwise instructed. Resume previous activities tomorrow. Diet: Start by taking liquids. If you tolerate liquids, advance to solid food. 1.: EGD in 3 years Notify Physician - If you experience excessive bleeding, unusual abdominal pain, fever, or chest pain, contact your doctor immediately. REINALDO HANKS DO Dec 31, 2021 11:36
[2021-12-31 11:50] VITALS: BP 116/74
[2021-12-31 12:05] VITALS: BP 116/74
--- NOTE | 2021-12-31 13:30 | Anesthesia-General Post-Op ---
MAC Patient Condition Mental Status/LOC: Same as Preop Cardiovascular: Satisfactory Nausea/Vomiting: Absent Respiratory: Satisfactory Pain: Controlled Complications: Absent Post Op Complications Complications None Follow Up Care/Instructions Patient Instructions None needed. Anesthesiology Discharge Order Discharge Order Patient is doing well, no complaints, stable vital signs, no apparent adverse anesthesia problems. No complications reported per nursing. BRADY JOHNSON CRNA Dec 31, 2021 13:29
== END 2021-12-31 12:10 | disposition home or self-care (01) ==
LOC: ENDO 10:30
PROVIDERS: ATTEND Surgery
DX: K29.50 Unspecified chronic gastritis without bleeding (principal); K44.9 Diaphragmatic hernia without obstruction or gangrene; K31.7 Polyp of stomach and duodenum; K31.89 Other diseases of stomach and duodenum; K21.9 Gastro-esophageal reflux disease without esophagitis; K80.10 Calculus of gallbladder with chronic cholecystitis without obstruction; K31.84 Gastroparesis; E11.9 Type 2 diabetes mellitus without complications; Z79.4 Long term (current) use of insulin; Z79.84 Long term (current) use of oral hypoglycemic drugs; Z79.899 Other long term (current) drug therapy
CPT/HCPCS: 82947; 84703; 88305

== ENCOUNTER → 2022-01-31 | Outpatient (CLI) | payer OTHER ==
[~2022-01-31] MED LIST changes: -VENL150C PO; +VENL150C3 PO
== END ==
LOC: CARD 12:00
PROVIDERS: ATTEND Nurse Practitioner Family
DX: I35.0 Nonrheumatic aortic (valve) stenosis (principal); U09.9 Post COVID-19 condition, unspecified
CPT/HCPCS: 93306